=== PATIENT | female | born 1995 | race Caucasian/White ===

== ENCOUNTER 2016-12-24 21:38 | Emergency (ER) | payer OTHER ==
[~2016-12-24] VITALS: Ht 160 cm; Wt 83.0 kg
[2016-12-24 23:04] LABS: microscopic required? NO
[2016-12-24 23:09] LABS: BASOPHIL % 0.4 % (0-2); PLATELET COUNT 238 x10^3mcL (130-400); RED CELL DISTRIBUTION WIDTH 14.5 % (11.5-14.5)
[2016-12-24 23:12] LABS: urine erythrocyte NEGATIVE (NEGATIVE)
[2016-12-24 23:20] LABS: CALCIUM 8.3 mg/dL (8.5-10.1); CHLORIDE SERUM 108 mmol/L (98-107); CREATININE SERUM 0.7 mg/dL (0.6-1.0); GFR1 > 60 mL/min; GLUCOSE SERUM 88 mg/dL (74-106); POTASSIUM SERUM 3.4 mmol/L (3.5-5.1); SODIUM SERUM 142 mmol/L (136-145)
[2016-12-24 23:25] LABS: ALBUMIN 3.5 g/dL (3.4-5.0); ALKALINE PHOSPHATASE 92 U/L (46-116); ALT/SGPT 19 U/L (14-59); AMYLASE 82 U/L (25-115); AST/SGOT 13 U/L (15-37); BILIRUBIN TOTAL 0.2 mg/dL (0.20-1.00); LIPASE 83 IU/L (73-393); TOTAL PROTEIN, SERUM 6.4 g/dL (6.4-8.2)
[2016-12-25 01:30] VITALS: BP 122/62
== END 2016-12-25 02:57 | disposition home or self-care (01) ==
LOC: ED 21:38
PROVIDERS: Emergency Medicine
DX: R10.30 Lower abdominal pain, unspecified (principal)
CPT/HCPCS: J2270

== ENCOUNTER 2017-05-02 14:52 | Emergency (ER) | payer OTHER ==
[~2017-05-02] VITALS: Ht 160 cm; Wt 83.0 kg
[2017-05-02 17:03] VITALS: BP 125/90
== END 2017-05-02 17:09 | disposition home or self-care (01) ==
LOC: ED 14:52
DX: M54.5 Low back pain (principal)

== ENCOUNTER 2018-10-29 22:06 | Emergency (ER) | payer OTHER | END 2018-10-29 23:17 | disposition left against medical advice (07) | LOC: ED 22:06 | DX: Z53.21 Procedure and treatment not carried out due to patient leaving prior to being seen by health care provider (principal) ==